=== PATIENT | female | born 1995 | race Caucasian/White ===

== ENCOUNTER → 2019-05-27 16:15 | Outpatient (CLI) | payer SELFPAY ==
[2019-06-02 14:04] LABS: HPV Reflexed? NOT INDICATED
== END ==
PROVIDERS: Referring Provider Obstetrics & Gynecology; Visit Provider Obstetrics & Gynecology
DX: Z12.4 Encounter for screening for malignant neoplasm of cervix (principal)
CPT/HCPCS: 88175; G0145

== ENCOUNTER → 2019-08-04 16:36 | Outpatient (CLI) | payer SELFPAY ==
[2019-08-04 18:34] LABS: Chlamydia Trachomatis by PCR Negative (Negative); Neisserai gonorrhoeae by PCR Negative (Negative); Probe Check PASS; Sample Adequacy Control PASS; Specimen Processing Control PASS
== END ==
PROVIDERS: Visit Provider Obstetrics & Gynecology
DX: Z11.3 Encounter for screening for infections with a predominantly sexual mode of transmission (principal)
CPT/HCPCS: 87491; 87591

== ENCOUNTER → 2019-08-18 15:10 | Outpatient (CLI) | payer SELFPAY ==
[2019-08-18 16:34] LABS: Color, Urine Yellow (Yellow); Glucose, Dipstick Normal (Normal); Ketone-Dipstick Negative (Negative); Leukocyte Esterase-Dipstick Negative /ul (Negative); Nitrite-Dipstick Negative (Negative); Occult Blood-Urine Negative /ul (Negative); Protein-Dipstick Negative (Negative); Urine Bilirubin Dipstick Negative (Negative); Urine Clarity Sl. Cloudy (Clear); Urine Urobilinogen Normal (Normal)
[2019-08-18 16:35] LABS: Absolute Lymphocyte Count 1.67 X10^3/uL (0.83-4.51); Absolute Neutrophil Count 7.6 X10^3/uL (2.0-7.7); Basophil# 0.02 X10^3/uL; Basophil% 0.2 % (0-1); Eosinophil# 0.06 X10^3/uL; Eosinophils% 0.6 % (0-5); Hematocrit 38.3 % (37-47); Hemoglobin 12.7 g/dL (12.0-15.0); Lymphocyte # 1.67 X10^3/ul (4.0); Lymphocyte % 16.6 % (19-41); Mean Corp Hgb Conc 33.2 g/dL (32-36); Mean Corpuscular Volume 84.5 fL (81-99); Mean Platelet Vol. 8.8 fl (6.2-12.0); Monocyte# 0.66 X10^3/uL; Monocyte% 6.5 % (0-10); NRBC Flagged by Analyzer 0 % (0-5); Neutrophil # 7.63 X10^3/uL (2.7-7.7); Neutrophil % 75.7 % (47-70); Platelet Count 340 K/mm3 (150-450); RBC Distribution Width CV 13.3 % (11.6-14.6); RBC Distribution Width SD 41.1 fl (35.1-43.9); Red Blood Count 4.53 M/mm3 (4.2-5.4); White Blood Count 10.1 K/mm3 (4.4-11.0)
[2019-08-18 17:07] LABS: Thyroid Stim Hormone (TSH) 2.02 uIU/mL (0.358-3.74)
[2019-08-19 10:08] LABS: HIV - WCH Non-Reactive (Nonreactive); Hepatitis B Surface Antigen Non-Reactive (Nonreactive); Hepatitis C Antibody Non-Reactive (Nonreactive); Rubella IgG 18.6 IU/mL
[2019-08-20 03:50] LABS: Prenatal RPR NONREACTIVE (NONREACTIVE)
== END ==
PROVIDERS: Visit Provider Obstetrics & Gynecology
DX: Z34.81 Encounter for supervision of other normal pregnancy, first trimester (principal)
CPT/HCPCS: 36415; 81002; 84443; 85025; 86703; 86762; 86803; 87340

== ENCOUNTER → 2020-01-07 09:54 | Outpatient (CLI) | payer SELFPAY ==
[2020-01-07 10:33] LABS: Hematocrit 35.3 % (37-47); Hemoglobin 11.3 g/dL (12.0-15.0); Mean Corpuscular Hgb 29.1 pg (27.0-32.0); Mean Platelet Vol. 8.6 fl (6.2-12.0); Platelet Count 300 K/mm3 (150-450); RBC Distribution Width CV 12.6 % (11.6-14.6); RBC Distribution Width SD 41.6 fl (35.1-43.9); Red Blood Count 3.88 M/mm3 (4.2-5.4); White Blood Count 9.7 K/mm3 (4.4-11.0)
[2020-01-07 10:36] LABS: Glucose Challenge Gest 1H 50g 83 mg/dL (70-140)
== END ==
PROVIDERS: Visit Provider Obstetrics & Gynecology
DX: Z34.82 Encounter for supervision of other normal pregnancy, second trimester (principal)
CPT/HCPCS: 36415; 82950; 85027; 86850

== ENCOUNTER → 2020-03-09 | Outpatient (CLI) | payer SELFPAY | END | disposition home or self-care (01) | LOC: LABSPEC 16:50 | PROVIDERS: PCP Family Medicine; Visit Provider Obstetrics & Gynecology | DX: Z36.85 Encounter for antenatal screening for Streptococcus B (principal) | CPT/HCPCS: 87081 ==

== ENCOUNTER 2020-03-31 22:02 | Inpatient (IN) | payer SELFPAY ==
[2020-03-31 21:53] VITALS: BP 118/81; PULSE 78; PULSE 81; TEMP 36.6; O2SAT 97
[2020-03-31] MEDS: Lactated Ringers 1,000 ML 200 ML IV (22:10)
[2020-03-31 22:15] VITALS: BMI 34.7
[2020-03-31 22:23] LABS: Absolute Lymphocyte Count 1.51 X10^3/uL (0.83-4.51); Absolute Neutrophil Count 7.2 X10^3/uL (2.0-7.7); Basophil# 0.02 X10^3/uL; Basophil% 0.2 % (0-1); Eosinophil# 0.03 X10^3/uL; Eosinophils% 0.3 % (0-5); Hematocrit 31.4 % (37-47); Hemoglobin 10.4 g/dL (12.0-15.0); Lymphocyte # 1.51 X10^3/ul (4.0); Lymphocyte % 15.9 % (19-41); Mean Corp Hgb Conc 33.1 g/dL (32-36); Mean Corpuscular Hgb 27.4 pg (27.0-32.0); Mean Corpuscular Volume 82.6 fL (81-99); Mean Platelet Vol. 9.5 fl (6.2-12.0); Monocyte# 0.74 X10^3/uL; Monocyte% 7.8 % (0-10); NRBC Flagged by Analyzer 0 % (0-5); Neutrophil # 7.16 X10^3/uL (2.7-7.7); Neutrophil % 75.3 % (47-70); Platelet Count 265 K/mm3 (150-450); RBC Distribution Width CV 12.6 % (11.6-14.6); RBC Distribution Width SD 37.9 fl (35.1-43.9); White Blood Count 9.5 K/mm3 (4.4-11.0)
--- NOTE | 2020-03-31 22:43 | PCM.HPOB.BLA ---
History and Physical Date of Admission: 03/31/20 CC: Contractions HPI: 24yo at 40wk/0d with JAYDE: 03/31/20 by 7wk U/s arrives with contractions. Denies JAVIER, CP, SOB, Visual changes, N/V, RUQ pain, LOF. States good movement OB Hx: G1: 40wk , Male 07/08/[birth year] G2: SAB, 05/3019 G3: current PMH: Rh Neg PSH: T&A Allergies: KNDA Soc: Denies smoking, drinking or drug use Family Hx: Denies hx of DVT/PE ROS: Besides the above pertinent positives a full review of systems was performed and found to be negative Physical Exam: Vital Signs Temp Pulse BP Pulse Ox 04/01/20 00:32 141/79 H 03/31/20 23:53 74 100 03/31/20 23:48 77 99 03/31/20 21:53 97.9 F 78 118/81 H 97 Gen: NAD HEENT; NCAT, PERRL Resp: Non labored breathing, no accessory muscles used Abdomen: Soft, nontender, gravid Ext: No peripheral edema, normal peripheral pulses Psych: normal affect normal demeanor, nonpressured speech Mom's Labs & Results 03/31/20 03/31/20 22:10 22:10 WBC 9.5 RBC 3.80 L Hgb 10.4 L Hct 31.4 L MCV 82.6 MCH 27.4 MCHC 33.1 RDW Std Deviation 37.9 RDW Coeff of Sobeida 12.6 Plt Count 265 MPV 9.5 Immature Gran % (Auto) 0.500 Neut % (Auto) 75.3 H Lymph % (Auto) 15.9 L [place] % (Auto) 7.8 Eos % (Auto) 0.3 Baso % (Auto) 0.2 Absolute Neuts (auto) 7.2 Absolute Lymphs (auto) 1.51 Nucleated RBC % 0 Blood Type Pending Antibody Screen Pending Course Did the patient receive Yes care? Labs Blood Type: A RH: NEGATIVE RPR/VDRL/Syphilis Nonreactive Rubella status Immune HbSAg Negative Date Done: 08/18/19 Chlamydia Negative Gonorrhea Negative HIV/AIDS Non-Reactive Group B Strep: Negative A/P: 24yo at 40wk/0d in Labor. -Admit labor and delivery -CEFM -GBS neg -Routine orders -Anesthesia to see -Rh Neg: for rhogam
[2020-03-31 23:48] VITALS: PULSE 77; O2SAT 99
[2020-03-31 23:53] VITALS: PULSE 74; O2SAT 100
[2020-04-01] VITALS (18 sets, daily range): BP systolic 105–141; BP diastolic 61–81; PULSE 61–96; RESP 16–18; TEMP 36.6–37.2; O2SAT 91–98
--- NOTE | 2020-04-01 00:35 | PCM.PN.BLA ---
Progress Note Progress note: Patient seen and examined. Having painful contractions going natural without epidural. -Cervical exam: /-2 AROM clear fluid heart tones: 130s/moderate variability/positive accelerations/negative decelerations [place]: Every 2 minutes Assessment/plan: Going natural expectant management STROKE Vital Signs/Narrative: Vital Signs Temp Pulse BP Pulse Ox 04/01/20 00:32 97.9 F 72 141/79 H 03/31/20 23:53 74 100 03/31/20 23:48 77 99 03/31/20 21:53 97.9 F 78 118/81 H 97
[2020-04-01] MEDS: Oxytocin 30 units/NS 500 ml 30 UNITS/500 ML IV.SOLN 999 UNITS IV (01:41)
--- NOTE | 2020-04-01 02:03 | PCM.OPRPT ---
Vaginal Delivery Maternal Presentation: Active Labor Amniotic Membrane Rupture Type: Artificial Rupture of Membrane time: 0030 Amniotic Fluid Description: Clear Final JAYDE: 03/31/20 Final JAYDE Source: US <20 weeks Gestational age: 40 Weeks and 1 Days Mobile doctor who attended delivery (if requested by OB): Akiko Gaffney Date of Procedure: 04/01/20 Pre-Operative Diagnosis: Labor Post-Operative Diagnosis: Labor Surgery/ Procedure Performed: Spontaneous Vaginal Delivery Type of Anesthesia: Local with 1% lidocaine Description of Procedure: Normal spontaneous vaginal delivery of a viable female infant, vertex position. After AROM cervical dilation progressed to 10 cm +2 station. After first maternal push with contraction bradycardia was noted 50s to 60s, but head was continuing to progress and contractions were q1 minute. Based on progression and with maternal coaching progress continue to be made with each contraction. Head and shoulders delivered with ease, nuchal cord x2 noted. Terminal meconium was noted. Cord was cut and clamped baby was handed off to hosiery mater. Placenta delivered via cord traction and fundal massage. Second-degree laceration was noted and repaired in typical fashion. Hemostatic periurethral lacerations were noted, no repair was needed. EBL 300 cc Apgars 7/9. Steam Station Supervisor was present for delivery
--- NOTE | 2020-04-01 02:13 | DCINST_ITS ---
<Monster Vines - Last Filed: 04/01/20 02:13> Discharge Diet: No Restrictions Discharge Activity: Return to Normal Activity May resume sexual activity in: 2 weeks Weight Bearing Status: Weight bearing as tolerated Call your doctor if your incision/area has: Foul Smelling Discharge Call your doctor if you observe: Fever of 101 or Higher, Shortness of breath, Chest pain Additional Instructions: If you experience any of the following, contact your healthcare provider. * Bleeding that soaks a pad every hour for 2 hours * Fever 100.4 or higher * Unrelieved incision or abdominal pain * Swelling, redness, discharge or bleeding from your incision or episiotomy site * Your incision begins to separate * Problems urinating (including inability to urinate or burning while urinatin g). * Visual changes * Severe headache * Flu-like symptoms * Pain or redness in one of both of your breasts * Pain, warmth, tenderness or swelling in your legs, especially the calf area * Frequent nausea and vomiting * Symptoms of depression or anxiety If you experience any of the following, call 911 or go to the nearest Emergency Room. * Chest pain * Problems breathing * Seizure activity * Partial or complete paralysis of a body part, slurred speech, weakness or drooping of the face, or a sudden inability to walk or hold your balance Allergies/Adverse Reactions: Allergies No Known Allergies Allergy (Verified 03/31/20 22:35) Medications to take at Discharge Dha 03/31/20 Please Follow Up With: Thuy Taylro CNM When: 6 weeks Primary Care Physician: Catalino Noe MD [Primary Care Provider] - Test Results: Test results from this visit will be discussed in further detail at your follow- up appointment, if applicable. <Bobbi Vines - Last Filed: 04/02/20 09:19> Additional Instructions: If you experience any of the following, contact your healthcare provider. * Bleeding that soaks a pad every hour for 2 hours * Fever 100.4 or higher * Unrelieved incision or abdominal pain * Swelling, redness, discharge or bleeding from your incision or episiotomy site * Your incision begins to separate * Problems urinating (including inability to urinate or burning while urinating). * Visual changes * Severe headache * Flu-like symptoms * Pain or redness in one of both of your breasts * Pain, warmth, tenderness or swelling in your legs, especially the calf area * Frequent nausea and vomiting * Symptoms of depression or anxiety If you experience any of the following, call 911 or go to the nearest Emergency Room. * Chest pain * Problems breathing * Seizure activity * Partial or complete paralysis of a body part, slurred speech, weakness or drooping of the face, or a sudden inability to walk or hold your balance Test Results: Test results from this visit will be discussed in further detail at your follow- up appointment, if applicable.
--- NOTE | 2020-04-01 02:13 | PCM.DCVAG ---
<Monster Vines - Last Filed: 04/01/20 02:13> Discharge Diet: No Restrictions Discharge Activity: Return to Normal Activity May resume sexual activity in: 2 weeks Weight Bearing Status: Weight bearing as tolerated Call your doctor if your incision/area has: Foul Smelling Discharge Call your doctor if you observe: Fever of 101 or Higher, Shortness of breath, Chest pain Additional Instructions: If you experience any of the following, contact your healthcare provider. Bleeding that soaks a pad every hour for 2 hours Fever 100.4 or higher Unrelieved incision or abdominal pain Swelling, redness, discharge or bleeding from your incision or episiotomy site Your incision begins to separate Problems urinating (including inability to urinate or burning while urinating). Visual changes Severe headache Flu-like symptoms Pain or redness in one of both of your breasts Pain, warmth, tenderness or swelling in your legs, especially the calf area Frequent nausea and vomiting Symptoms of depression or anxiety If you experience any of the following, call 911 or go to the nearest Emergency Room. Chest pain Problems breathing Seizure activity Partial or complete paralysis of a body part, slurred speech, weakness or drooping of the face, or a sudden inability to walk or hold your balance Allergies/Adverse Reactions: Allergies No Known Allergies Allergy (Verified 03/31/20 22:35) Medications to take at Discharge Dha 03/31/20 Please Follow Up With: Thuy Taylor CNM When: 6 weeks Primary Care Physician: Catalino Noe MD [Primary Care Provider] - Test Results: Test results from this visit will be discussed in further detail at your follow-up appointment, if applicable. <Bobbi Vines - Last Filed: 04/02/20 09:19> Additional Instructions: If you experience any of the following, contact your healthcare provider. Bleeding that soaks a pad every hour for 2 hours Fever 100.4 or higher Unrelieved incision or abdominal pain Swelling, redness, discharge or bleeding from your incision or episiotomy site Your incision begins to separate Problems urinating (including inability to urinate or burning while urinating). Visual changes Severe headache Flu-like symptoms Pain or redness in one of both of your breasts Pain, warmth, tenderness or swelling in your legs, especially the calf area Frequent nausea and vomiting Symptoms of depression or anxiety If you experience any of the following, call 911 or go to the nearest Emergency Room. Chest pain Problems breathing Seizure activity Partial or complete paralysis of a body part, slurred speech, weakness or drooping of the face, or a sudden inability to walk or hold your balance Test Results: Test results from this visit will be discussed in further detail at your follow-up appointment, if applicable.
[2020-04-01] MEDS: Ibuprofen 600 MG Tablet PO ×2 (02:18→20:44)
[2020-04-01] MEDS: Acetaminophen 500 MG Tablet 1000 MG PO (07:27)
--- NOTE | 2020-04-01 08:43 | NURSING ---
Draw by Radha Mckeon
[2020-04-02 00:20] VITALS: BP 112/68; PULSE 69; RESP 18; TEMP 36.6
[2020-04-02 05:30] VITALS: BP 108/66; PULSE 62; RESP 16; TEMP 36.5
--- NOTE | 2020-04-02 07:18 | PCM.PN.OB ---
Subjective: PPD#1 Objective: Feeling well, lochia minimal. - Physical Exam Vitals/I&O's: Vital Signs Temp Pulse Resp BP Pulse Ox 97.7 F L 62 16 108/66 98 04/02/20 05:30 04/02/20 05:30 04/02/20 05:30 04/02/20 05:30 04/01/20 02:31 Oxygen Delivery Method Room Air Weight: 94.801 kg Body Mass Index (BMI) 34.7 Intake and Output for Last 24 Hours 03/31/20 04/01/20 04/02/20 23:59 23:59 23:59 Intake Total 1173.33 / 1173.33 Output Total 450 / 450 Balance 723.33 / 723.33 General: Alert, No apparent distress HEENT: Atraumatic, Normocephalic Lungs: Normal air movement Abdomen: Soft - uterus 2 cm below umbilicus Extremities: No clubbing, No cyanosis Psych/Mental Status: Normal Affect, Appropriate Laboratory Results 04/01/20 08:30: Screen NEGATIVE, Baby's Blood Type A POSITIVE, Baby's JA NEGATIVE Current Medications Acetaminophen (Tylenol) 1,000 mg PO Q8H PRN PRN PRN Reason: Pain Score 1-3/10 Last Admin: 04/01/20 07:27 Dose: 1,000 mg Documented by: Bisacodyl (Dulcolax) 10 mg RECTAL UD PRN PRN Reason: If no BM Dibucaine (Dibucaine) 1 applic TOPICAL TID PRN PRN; Protocol PRN Reason: Discomfort Hydrocortisone (Hytone) 1 applic TOPICAL TID PRN PRN; Protocol PRN Reason: Discomfort Ibuprofen (Motrin) 600 mg PO Q6H PRN PRN PRN Reason: Pain Score 1-3/10 Last Admin: 04/01/20 20:44 Dose: 600 mg Documented by: Ondansetron HCl (Zofran) 4 mg IV Q4H PRN PRN PRN Reason: Nausea Senna/Docusate Sodium (Senokot-S, Ling-Colace) 1 - 2 tablet PO DAILY PRN PRN PRN Reason: Constipation Simethicone (Mylicon) 80 mg PO PCHS PRN PRN Reason: Indigestion/Stomach pain Sodium Chloride () 5 - 15 ml IV UD PRN PRN Reason: SALINE FLUSH Medical Necessity - Tobacco Use Smoking Status: Never smoker Assessment/Plan PPD#1 s/p . Chronic anemia, encourage iron use. Home today. F/u 6w.
[2020-04-02 07:58] VITALS: BP 103/70; PULSE 86; RESP 18; TEMP 36.1; O2SAT 98
[2020-04-02 10:17] VITALS: BP 103/70; PULSE 86; RESP 18; TEMP 36.1; O2SAT 98
== END 2020-04-02 10:50 | disposition home or self-care (01) | DRG 807 ==
LOC: WPOUT 22:06 → WP 22:06
PROVIDERS: Admitting Provider Obstetrics & Gynecology; PCP Family Medicine; Visit Provider Obstetrics & Gynecology
DX: O69.81X0 Labor and delivery complicated by cord around neck, without compression, not applicable or unspecified (principal); Z37.0 Single live birth; O70.1 Second degree perineal laceration during delivery; O76 Abnormality in fetal heart rate and rhythm complicating labor and delivery; Z3A.40 40 weeks gestation of pregnancy; O77.0 Labor and delivery complicated by meconium in amniotic fluid
CPT/HCPCS: 59025; 59050; 85025; 85461; 86850; 86900; 86901; 90384; 99218; J7120; G0378; J2790

== ENCOUNTER 2021-02-06 14:17 | Emergency (ER) | payer OTHER, SELFPAY ==
[2021-01-07 13:20] VITALS: BMI 34.7
[2021-02-06 14:18] VITALS: BP 120/80; PULSE 104; RESP 16; TEMP 36.8; O2SAT 100; BMI 31.3
--- NOTE | 2021-02-06 16:12 | CT_ITS ---
STUDY: CT BRAIN WITH AND WITHOUT CONTRAST REASON FOR EXAM: Female, 25 years old. Severe headache RADIATION DOSAGE (If Supplied By Facility): CTDIvol = ( 26.01 ) mGy, DLP = ( 1103.46 ) mGycm TECHNIQUE: Transaxial CT imaging of the brain was performed pre and post contrast administration. The examination was performed with intravenous administration of 100 CC ISOVUE 370. Individualized dose optimization techniques were used for this CT. COMPARISON: None. FINDINGS: Normal soft tissue structures. Normal calvarium. Normal size ventricles and extra-axial spaces for the patient''s age. Normal white matter tracts of the cerebral hemispheres. Normal basal ganglia and thalami. Normal brainstem. Normal cerebellum. There is no intracranial hemorrhage. There are no findings of an acute ischemic infarction. Normal visualized paranasal sinuses. No suspicious enhancing lesion after contrast administration CT/CTA Head W/WO Contrast IMPRESSION: Normal unenhanced and enhanced CT scan of the brain. Electronically Signed: Diogenes Latif MD at 18:08 EDT , Service support ,
--- NOTE | 2021-02-06 16:14 | EDS_ITS ---
HPI History of Present Illness Chief Complaint: Headache Informant: patient and spouse/S.O. Narrative Narrative: Patient presents with bilateral frontal headache. She describes as a pressure behind her eyes. Radiate a little bit to the bridge of her nose. It did start after sexual intercourse but was not sudden onset or thunderclap. Its not that bad of a headache She has been eating and drinking and doing normal activity. There is no photophobia. She had some transient mild nausea this morning She has no history of migraines or aneurysms. She has no history of polycystic kidney disease. There are some headache histories in her family members but not migraines that she knows of a large amount of. Nothing specifically makes the symptoms better or worse. PFSH PFSH Home Medications multivitamin 1 tab PO DAILY 02/06/21 [History Last Taken Unknown] Allergy/AdvReac Type Severity Reaction Status Date / Time No Known Allergies Allergy Verified 02/06/21 14:20 Social History Smoking Status: Never smoker ROS ROS ED Constitutional Constitutional ED: Denies chills, fever(s), sweats or weight loss Eyes Eyes: Denies blurry vision, change in vision or diplopia ENT ENT ED: Denies rhinorrhea or sore throat Cardiovascular Cardiovascular: Denies chest pain Respiratory/Chest Respiratory/Chest: Denies cough or dyspnea Gastrointestinal Gastrointestinal: Reports nausea and other Details: Patient had some very mild transient nausea this morning. ; Denies abdominal pain, constipation, diarrhea, melena or vomiting Genitourinary Genitourinary ED: Denies dysuria Musculoskeletal Musculoskeletal: Denies neck pain Integumentary Denies rash Neurologic Neurologic: Reports headache(s); Denies paresthesias or weakness Allergic/Immunologic Allergic/Immunologic ED: Denies mouth swelling EXAM Physical Exam Const Vital Signs: 02/06/21 14:18 02/06/21 16:28 Temperature 98.3 F Temperature Source Temporal Pulse Rate 104 H 84 Respiratory Rate 16 16 Blood Pressure 120/80 140/89 H Blood Pressure Mean 93 106 Pulse Ox 100 98 Oxygen Delivery Method Room Air Room Air Positive well nourished and well developed Constitutional Narrative: Patient is sitting quietly and comfortably in a well lit room. She looks nontoxic. General Appearance ED: well developed and NAD HEENT Reports TM's clear and moist mucous membranes Negative for trauma or tenderness Tympanic Membrane ED: Yes TM's clear Eyes PERRL and EOMs intact bilaterally Eyes Narrative: Normal funduscopic exam and no photophobia. General Eye ED: Negative for pale conjunctiva or scleral icterus Neck no lymphadenopathy and supple Neck Narrative: No meningismus. Chest Wall inspection of chest normal Resp normal respiratory effort and clear to auscultation bilaterally Cardio regular rate and regular rhythm GI normal to inspection, nondistended, normoactive bowel sounds, non-tender and non-distended Palpation: soft Back/Spine no CVA tenderness Extremity normal to inspection General Extremety ED: Negative for edema or tenderness General Extremity: Negative for edema Neuro oriented x3 and no sensory deficits noted Sensorium / Orientation: alert; Negative for lethargic or stuporous Motor Exam: strength 5/5 throughout Psych mental status grossly normal Skin no rashes or lesions noted and no wounds MDM MDM MDM Narrative Medical decision making narrative: Patient's blood work are all negative. CT and CT angiogram are also negative. Patient symptoms are resolved. I talked to her about options. We discussed options of lumbar puncture. We discussed risk benefits. At this point was chosen not to proceed. Obviously, is the complaint of having headache that occurred around the time of intercourse is concerning for aneurysm. There is no history of aneurysms or polycystic kidney disease. The headache was not thunder clap onset. It was not severe headache. No neurologic symptoms. Her CT and CTA are negative. We discussed follow-up and rapid return with any return of symptoms. Lab Data Labs: Laboratory Results - last 24 hr 02/06/21 02/06/21 02/06/21 17:00 17:00 17:00 WBC 9.6 RBC 4.67 Hgb 13.0 Hct 39.5 MCV 84.6 MCH 27.8 MCHC 32.9 RDW Std Deviation 38.1 RDW Coeff of Sobeida 12.6 Plt Count 285 MPV 8.6 Immature Gran % (Auto) 0.300 Neut % (Auto) 80.5 H Lymph % (Auto) 13.6 L [place] % (Auto) 5.1 Eos % (Auto) 0.2 Baso % (Auto) 0.3 Absolute Neuts (auto) 7.7 Absolute Lymphs (auto) 1.30 Nucleated RBC % 0 Sodium 137 Potassium 3.8 Chloride 105 Carbon Dioxide 26.0 Anion Gap 6 BUN 10 Creatinine 0.81 Estim Creat Clear Calc 94.71 Est GFR (MDRD) Af Amer 110 Est GFR (MDRD) Non-Af 91 BUN/Creatinine Ratio 12.4 Glucose 90 Calcium 9.6 Serum , Qual NEGATIVE Radiography Diagnostic Testing: Radiology Impression Head CTA 02/06/21 16:12 IMPRESSION: Normal unenhanced and enhanced CT scan of the brain. Electronically Signed: Diogenes Latif MD at 18:08 EDT , Service support , Discharge Plan Triage Chief Complaint: Headache ED Provider: Jose Carlos Lunsford Dx/Rx/DC Orders Clinical Impression: Headache Instructions: ED Headache Unspecified Prescriptions: No Action multivitamin Tablet 1 tab PO DAILY RF: 0 Primary Care Provider: Vianca Grady Referrals: Vianca Grady, [employer] [Primary Care Provider] - 1-2 Days if not improving Disposition Disposition: Home, Self Care
[2021-02-06 16:28] VITALS: BP 140/89; PULSE 84; RESP 16; O2SAT 98
[2021-02-06] MEDS: proCHLORPERazine 10 MG/2 ML Vial IV (17:19)
[2021-02-06] MEDS: DiphenhydrAMINE 50 MG/ML Syringe 25 MG IV (17:19)
[2021-02-06 17:20] LABS: Absolute Neutrophil Count 7.7 X10^3/uL (2.0-7.7); Basophil# 0.03 X10^3/uL; Basophil% 0.3 % (0-1); Eosinophil# 0.02 X10^3/uL; Eosinophils% 0.2 % (0-5); Hematocrit 39.5 % (37-47); Lymphocyte % 13.6 % (19-41); Mean Corp Hgb Conc 32.9 g/dL (32-36); Mean Corpuscular Hgb 27.8 pg (27.0-32.0); Mean Corpuscular Volume 84.6 fL (81-99); Mean Platelet Vol. 8.6 fl (6.2-12.0); Monocyte# 0.49 X10^3/uL; Monocyte% 5.1 % (0-10); NRBC Flagged by Analyzer 0 % (0-5); Neutrophil # 7.71 X10^3/uL (2.7-7.7); Neutrophil % 80.5 % (47-70); Platelet Count 285 K/mm3 (150-450); RBC Distribution Width CV 12.6 % (11.6-14.6); RBC Distribution Width SD 38.1 fl (35.1-43.9); Red Blood Count 4.67 M/mm3 (4.2-5.4); White Blood Count 9.6 K/mm3 (4.4-11.0)
[2021-02-06] MEDS: 0.9% Normal Saline 1,000 ML 999 ML IV (17:20)
[2021-02-06 17:39] LABS: Internal QC Validated? YES +Cl - CLEAR BKGD; Pregnancy, Serum, hCG Quali. NEGATIVE Negative
[2021-02-06 17:44] LABS: Anion Gap 6 (5-15); BUN 10 mg/dL (7-18); BUN/Creat Ratio 12.4 RATIO (10-20); Calcium,Total 9.6 mg/dL (8.5-10.1); Chloride 105 mmol/L (98-107); Creatinine, Serum 0.81 mg/dL (0.55-1.02); EST Glomerular Filtration Rate 91 mL/min (>60); Est Glom Filt Rate - Afr Amer 110 mL/min (>60); Estimated Creatinine Clearance 94.71 ml/min; Glucose 90 mg/dL (74-106); Potassium 3.8 mmol/L (3.5-5.1); Sodium Level 137 mmol/L (136-145)
[2021-02-06 19:20] VITALS: BP 129/80; PULSE 79; RESP 16; O2SAT 98
== END 2021-02-06 19:22 | disposition home or self-care (01) ==
PROVIDERS: Emergency Provider Emergency Medicine; PCP Nurse Practitioner Family
DX: R51.9 Headache, unspecified (principal); R11.0 Nausea
CPT/HCPCS: 70496; 80048; 84703; 85025; 96361; 96374; 96375; 99283; J7030; Q9967; A4216

== ENCOUNTER → 2023-01-09 | Outpatient (CLI) | payer SELFPAY ==
[2023-01-12 06:08] LABS: Chlamydia By Nucleic Acid AMP Negative (Negative); Gonococcus By Nucleic Acid AMP Negative (Negative)
[2023-01-14 17:29] LABS: HPV Reflexed? NOT INDICATED
== END | disposition home or self-care (01) ==
LOC: LABSPEC 14:51
PROVIDERS: PCP Nurse Practitioner Family; Referring Provider Registered Nurse; Visit Provider Registered Nurse
DX: Z34.90 Encounter for supervision of normal pregnancy, unspecified, unspecified trimester (principal)
CPT/HCPCS: 87086; 87088; 87491; 87591; 88175; G0145

== ENCOUNTER → 2023-01-18 | Outpatient (CLI) | payer SELFPAY ==
[2023-01-18 11:16] LABS: Absolute Lymphocyte Count 1.09 X10^3/uL (0.83-4.51); Basophil# 0.01 X10^3/uL; Basophil% 0.1 % (0-1); Eosinophil# 0.06 X10^3/uL; Eosinophils% 0.8 % (0-5); Hematocrit 37.4 % (37-47); Hemoglobin 12.2 g/dL (12.0-15.0); Lymphocyte # 1.09 X10^3/ul (0.83-4.51); Lymphocyte % 14.3 % (19-41); Mean Corp Hgb Conc 32.6 g/dL (32-36); Mean Corpuscular Hgb 27.9 pg (27.0-32.0); Mean Corpuscular Volume 85.6 fL (81-99); Mean Platelet Vol. 8.7 fl (6.2-12.0); Monocyte# 0.43 X10^3/uL; Monocyte% 5.6 % (0-10); NRBC Flagged by Analyzer 0 % (0-5); Neutrophil # 6.01 X10^3/uL (2.7-7.7); Neutrophil % 78.9 % (47-70); Platelet Count 316 K/mm3 (150-450); RBC Distribution Width CV 13.6 % (11.6-14.6); RBC Distribution Width SD 42.5 fl (35.1-43.9); Red Blood Count 4.37 M/mm3 (4.2-5.4); White Blood Count 7.6 K/mm3 (4.4-11.0)
[2023-01-18 11:40] LABS: Glucose Challenge Gest 1H 50g 125 mg/dL (70-140)
[2023-01-18 12:24] LABS: HIV - WCH Non-Reactive (Nonreactive); Hepatitis B Surface Antigen Non-Reactive (Nonreactive); Hepatitis C Antibody Non-Reactive (Nonreactive); Rubella IgG Equiv (Nonreactive); Syphilis Antibodies Non-reactive
== END | disposition home or self-care (01) ==
LOC: LAB 10:27
PROVIDERS: PCP Nurse Practitioner Family; Referring Provider Registered Nurse; Visit Provider Registered Nurse
DX: Z34.90 Encounter for supervision of normal pregnancy, unspecified, unspecified trimester (principal)
CPT/HCPCS: 36415; 82950; 85025; 86703; 86762; 86780; 86803; 86850; 86900; 86901; 87340

== ENCOUNTER → 2023-03-27 | Outpatient (CLI) | payer SELFPAY ==
--- NOTE | 2023-03-27 08:05 | US_ITS ---
STUDY: SECOND AND THIRD TRIMESTER OBSTETRICAL ULTRASOUND REASON FOR EXAM: Female, 27 years old anatomy LMP: November 06, 2022. TECHNIQUE: Transabdominal and Transvaginal TECHNICAL QUALITY: Adequate. PRIOR ULTRASOUND: None. FINDINGS: There is a single intrauterine fetus. The fetus is in a breech presentation. There is demonstrated cardiac activity with a heart rate of 153 bpm. There is a normal amniotic fluid volume. The largest amniotic fluid pocket measures 4.5 cm x 4.6 cm. The amniotic fluid index (GRACIE) is within normal limits. The placenta is posterior in location and is not low lying. There are Grade 0 placental changes. The cervix measures 5.1 cm in length. The bilateral adnexal regions are normal. BIOMETRY: BPD: 4.5 cm: 19 weeks, 5 days HC: 17.4 cm: 19 weeks, 6 days AC: 15.4 cm: 20 weeks, 4 days FL: 3.2 cm: 20 weeks, 0 days CI: 75% FL/BPD: 71% FL/HC: FL/AC: 21% HC/AC: 1.13 age by current US: 20 weeks, 0 days. JAYDE by current US: August 14, 2023. Estimated weight: 342 grams, +/- 51 grams, 51 %. Age by LMP: 20 weeks, 1 days. JAYDE by LMP: August 13, 2023. ANATOMY: Gender: Female Cranium: Normal lateral ventricles. Normal choroid plexus. Normal cerebellum. Normal cisterna magna. Normal face, nose and lips. Chest: Normal 4-chamber heart. Abdomen/Pelvis: Normal diaphragm. Normal stomach. Normal abdominal wall. Normal cord insertion. Normal 3 vessel cord. Normal kidneys. Normal bladder. Spine: Normal cervical spine. Normal thoracic spine. Normal lumbar spine. Normal sacrum. Extremities: Normal bilateral upper extremities. Normal bilateral lower extremities. IMPRESSION: Single live intrauterine gestation with a mean gestational age of 20 weeks. Electronically Signed: Pedro Huffman MD at 15:42 EDT , STUDY: FIRST TRIMESTER OBSTETRICAL ULTRASOUND REASON FOR EXAM: Female, 27 years old. Cervical neck. LMP: November 06, 2022 TECHNIQUE: Transvaginal TECHNICAL QUALITY: Adequate. PRIOR ULTRASOUND: None. FINDINGS: Cervical length measures 5.1 cm. US/OB Anatomy w/ Transvaginal IMPRESSION: Cervical length measures 5.1 cm. Electronically Signed: Pedro Huffman MD at 15:43 EDT ,
== END | disposition home or self-care (01) ==
PROVIDERS: PCP Nurse Practitioner Family; Referring Provider Obstetrics & Gynecology; Visit Provider Obstetrics & Gynecology
DX: O32.1XX0 Maternal care for breech presentation, not applicable or unspecified (principal); Z3A.13 13 weeks gestation of pregnancy
CPT/HCPCS: 76805; 76817

== ENCOUNTER → 2023-05-22 | Outpatient (CLI) | payer SELFPAY ==
[2023-05-22 09:51] LABS: Absolute Lymphocyte Count 1.32 X10^3/uL (0.83-4.51); Basophil# 0.02 X10^3/uL; Basophil% 0.2 % (0-1); Eosinophil# 0.06 X10^3/uL; Eosinophils% 0.7 % (0-5); Hematocrit 34.7 % (37-47); Hemoglobin 11.6 g/dL (12.0-15.0); Lymphocyte # 1.32 X10^3/ul (0.83-4.51); Lymphocyte % 14.7 % (19-41); Mean Corp Hgb Conc 33.4 g/dL (32-36); Mean Corpuscular Hgb 29.7 pg (27.0-32.0); Mean Platelet Vol. 8.6 fl (6.2-12.0); Monocyte# 0.51 X10^3/uL; Monocyte% 5.7 % (0-10); NRBC Flagged by Analyzer 0 % (0-5); Neutrophil # 7.03 X10^3/uL (2.7-7.7); Neutrophil % 77.9 % (47-70); Platelet Count 310 K/mm3 (150-450); RBC Distribution Width CV 13.1 % (11.6-14.6); RBC Distribution Width SD 42.6 fl (35.1-43.9)
[2023-05-22 10:08] LABS: Glucose Challenge Gest 1H 50g 125 mg/dL (70-140)
[2023-05-22 10:43] LABS: HIV - WCH Non-Reactive (Nonreactive); Syphilis Antibodies Non-reactive
== END | disposition home or self-care (01) ==
LOC: LAB 09:34
PROVIDERS: PCP Nurse Practitioner Family; Referring Provider Nurse Practitioner Women's Health; Visit Provider Nurse Practitioner Women's Health
DX: Z34.90 Encounter for supervision of normal pregnancy, unspecified, unspecified trimester (principal)
CPT/HCPCS: 36415; 82950; 85025; 86703; 86780; 86850; 86900; 86901

== ENCOUNTER → 2023-07-16 | Outpatient (CLI) | payer SELFPAY | END | disposition home or self-care (01) | PROVIDERS: PCP Nurse Practitioner Family; Referring Provider Advanced Practice Midwife; Visit Provider Advanced Practice Midwife | DX: Z34.90 Encounter for supervision of normal pregnancy, unspecified, unspecified trimester (principal) | CPT/HCPCS: 87081 ==

== ENCOUNTER → 2023-07-19 | Outpatient (CLI) | payer SELFPAY ==
--- NOTE | 2023-07-19 18:20 | US_ITS ---
STUDY: SECOND AND THIRD TRIMESTER OBSTETRICAL ULTRASOUND REASON FOR EXAM: Female, 28 years old Breech LMP: 11/06/2022 TECHNIQUE: Transabdominal TECHNICAL QUALITY: Adequate. PRIOR ULTRASOUND: 03/27/2023 FINDINGS: There is a single intrauterine fetus. The fetus is in a cephalic presentation. There is demonstrated cardiac activity with a heart rate of 148 bpm. There is a normal amniotic fluid volume. The largest amniotic fluid pocket measures 4.7 cm. The amniotic fluid index (GRACIE) is 13.6 cm. The placenta is posterior in location and is not low lying. There are Grade 1 placental changes. The cervix measures 4.2 cm in length. The bilateral adnexal regions are normal. BIOMETRY: BPD: 8.6]: 34 weeks, 6 days HC: 32.7 cm: 37 weeks, 1 days AC: 33.4 cm: 37 weeks, 2 days FL: 7.1 cm: 36 weeks, 2 days CI: 74.43 FL/BPD: 82.25 FL/HC: 21.65 FL/AC: 21.25 HC/AC: 0.98 age by current US: 36 weeks, 2 days. JAYDE by current US: 08/14/2023. Estimated weight: 3014 grams, +/- 452 grams, 61 %. age by prior US: weeks, days. JAYDE by prior US: . Age by LMP: 36 weeks, 3 days. JAYDE by LMP: 08/13/2023. US/OB Limited With Biometrics IMPRESSION: Living intrauterine of 36 weeks 2 days as described above. Electronically Signed: Nicolas Pro MD at 23:19 EST ,
== END | disposition home or self-care (01) ==
LOC: US 18:00
PROVIDERS: PCP Nurse Practitioner Family; Visit Provider Advanced Practice Midwife
DX: O32.1XX0 Maternal care for breech presentation, not applicable or unspecified (principal); Z3A.00 Weeks of gestation of pregnancy not specified
CPT/HCPCS: 76816

== ENCOUNTER 2023-08-17 07:00 | Inpatient (IN) | payer SELFPAY ==
[2023-08-17] VITALS (33 sets, daily range): BP systolic 104–146; BP diastolic 63–90; PULSE 62–86; RESP 16–18; TEMP 36.2–37; O2SAT 94–100; BMI 36.1
[2023-08-17] MEDS: Lactated Ringers 1,000 ML 50 ML IV (07:35)
[2023-08-17 07:59] LABS: Absolute Lymphocyte Count 1.55 X10^3/uL (0.83-4.51); Absolute Neutrophil Count 6.5 X10^3/uL (2.0-7.7); Basophil# 0.04 X10^3/uL; Basophil% 0.4 % (0-1); Eosinophil# 0.03 X10^3/uL; Eosinophils% 0.3 % (0-5); Hemoglobin 12.2 g/dL (12.0-15.0); Lymphocyte # 1.55 X10^3/ul (0.83-4.51); Lymphocyte % 17.3 % (19-41); Mean Corp Hgb Conc 33.9 g/dL (32-36); Mean Corpuscular Hgb 28.6 pg (27.0-32.0); Mean Corpuscular Volume 84.3 fL (81-99); Mean Platelet Vol. 9.2 fl (6.2-12.0); Monocyte% 7.8 % (0-10); NRBC Flagged by Analyzer 0 % (0-5); Neutrophil # 6.52 X10^3/uL (2.7-7.7); Neutrophil % 73.1 % (47-70); Platelet Count 329 K/mm3 (150-450); RBC Distribution Width CV 12.8 % (11.6-14.6); RBC Distribution Width SD 38.3 fl (35.1-43.9); Red Blood Count 4.27 M/mm3 (4.2-5.4); White Blood Count 8.9 K/mm3 (4.4-11.0)
[2023-08-17] MEDS: Oxytocin 15 Units/NS 250ml 15 UNITS/250 ML IV.SOLN 2 UNITS IV (08:32)
[2023-08-17 09:08] LABS: Syphilis Antibodies Non-reactive
--- NOTE | 2023-08-17 10:32 | HP.PCM.OB_ITS ---
HPI - General General Date of Admission: 08/17/23 Date of Service: 08/17/23 HPI Erik MENDOZA, is a 28 F 40.4 weeks gestation who presents to the unit for IOL for unstable lie of fetus. Cephalic upon admission verified by bedside US by Dr Billings. She was on the unit and offered to scan patient so IOL could be started. Maternal Data Information JAYDE Calculator Estimated Delivery Date Method Current WG Current Estimate 08/13/23 LMP (Certain) 40w 4d Final JAYDE: 08/13/23 Final JAYDE Source: US >20 weeks Gestational age: 40.4 weeks PFSH PFSH Home Medications docosahexaenoic acid 200 mg capsule ( DHA) 200 mg PO DAILY 03/06/23 [History Last Taken 08/16/23 08:00 200 mg] Allergy/AdvReac Type Severity Reaction Status Date / Time No Known Allergies Allergy Verified 08/17/23 07:28 Family History Mother Thyroid disorder Cystic fibrosis carrier Sister Cystic fibrosis carrier Grandfather Cancer maternal unsure what type Grandmother CVA (cerebral vascular accident) Grandfather Heart disease Defibrillator Paternal Cancer paternal type unknown Surgical History S/P tonsillectomy Social History household members: spouse current occupational status: unemployed current occupation: [employer] Smoking Status: Never smoker alcohol intake: never substance use type: does not use seatbelt use: always do you feel safe at home: Yes additional social history: - Maria E- RSE Keesha History 3 Elective abortions Hx Para 2 Spontaneous abortions Hx # Term Pregnancies Ectopic pregnancies Hx # Pregnancies Multiple births # of living children Past Pregnancies Del. Date Name GA/Weeks Outcome Route Bth Weight Infant Gen Labor Lgth Anesthesia Del Locatn Provider FOB 07/08/16 Darin 40 live - full term 8.9 Male epidural claire, [facility] 12/13/17 04/01/20 lucy 40 live - full term Female no ne [facility] dr[facility] natty horowitz Delivery Date: 12/13/17 Last Updated by: Lili Stephens, CNM unknown date, 4 years ago. faint positive test then bleeding. Visit Details Expected Delivery Route/Plan Labor Preferences- CB/BF classes: no labor support person: Maria E labor intervention preferences: [] pain management options preferred: epidural if needed cut cord/dad catch: no : yes PP control planned: discussed discussed possible routes of delivery and associated risks: [] special requests: [] Plans Covid status: Flu vaccine: declines Tdap vaccine: declines Rhogam: PRN, 28 weeks 05/22/23 LARC form signed: yes movement and labor precautions reviewed. Problem list reviewed and updated with the most current plan of care details and appropriate orders placed. Relevant counseling for the gestational age provided. Continue routine care and follow up unless otherwise noted in visit notes/problem list details OB Flowsheet Initial Weight: Not Recorded Date -?-?-?-?-?-?-?-?-?-?-?-?- EGA Weight BP Urine Prot -?-?-?-?-?-?-?-?-?-?-?-?- Glucose FHR FuHt Pres Dilation -?-?-?-?-?-?-?-?-?-?-?-?- Effaced St Visit Note 01/09/23 -?-?-?-?-?-?-?-?-?-?-?-?- 9w 1d 206 lb 2 oz 128/85 -?-?-?-?-?-?-?-?-?-?-?-?- 175 -?-?-?-?-?-?-?-?-?-?-?-?- LC- CRL con with LMP. verified with JV. early glucola for BMI LC- CRL con with LMP. verifi ed with JV. early glucola for BMI. undecided on genetics/carrier screening 02/06/23 -?-?-?-?-?-?-?-?-?-?-?-?- 13w 1d 209 lb 118/76 Negative -?-?-?-?-?-?-?-?-?-?-?-?- Negative 155 -?-?-?-?-?-?-?-?-?-?-?-?- JV- planning franklyn pa scan at [facility] 20 weeks. 03/06/23 -?-?-?-?-?-?-?-?-?-?-?-?- 17w 1d 209 lb 2 oz 119/77 Nega tive -?-?-?-?-?-?-?-?-?-?-?-?- Negative 148 -?-?-?-?-?-?-?-?-?-?-?-?- LC- no vb/[place]. discussed and declines afp. 03/27/23 -?-?-?-?-?-?-?-?-?-?-?-?- 20w 1d 207 lb 4 oz 118/74 Nega tive -?-?-?-?-?-?-?-?-?-?-?-?- Negative 153 -?-?-?-?-?-?-?-?-?-?-?-?- -No VB. Kala gallagher movement. Anatomy US today. Declines tdap 04/24/23 -?-?-?-?-?-?-?-?-?-?-?-?- 24w 1d 208 lb 6 oz 122/84 Nega tive -?-?-?-?-?-?-?-?-?-?-?-?- Negative 151 -?-?-?-?-?-?-?-?-?-?-?-?- MH-No VB, LOF. G ood FM. Denies concerns 05/22/23 -?-?-?-?-?-?-?-?-?-?-?-?- 28w 1d 213 lb 2 oz 116/72 Nega tive -?-?-?-?-?-?-?-?-?-?-?-?- Negative 146 -?-?-?-?-?-?-?-?-?-?-?-?- MH-No VB, LOF. G ood FM. Rhogam, larc. Declines tdap. 06/05/23 -?-?-?-?-?-?-?-?-?-?-?-?- 30w 1d 213 lb 8 oz 118/70 Nega tive -?-?-?-?-?-?-?-?-?-?-?-?- Negative 145 30 -?-?-?-?-?-?-?-?-?-?-?-?- SM- no vb lof go od fm n oregular ctx, in hospital right now for ileus hopefully coming home today. 06/13/23 -?-?-?-?-?-?-?-?-?-?-?-?- 31w 2d 214 lb 2 oz 108/75 Nega tive -?-?-?-?-?-?-?-?-?-?-?-?- Negative 140 31 0 -?-?-?-?-?-?-?-?-?-?-?-?- kw-problem visit today for small amt of spotting last night. had RHogam at 28 weeks. no further spotting. no lof/regular ctx. feeling good fm. 06/19/23 -?-?-?-?-?-?-?-?-?-?-?-?- 32w 1d 216 lb 110/70 Negative -?-?-?-?-?-?-?-?-?-?-?-?- Negative 143 33 -?-?-?-?-?-?-?-?-?-?-?-?- JV- no further s potting. no complaints. Thinks it was from wiping too hard. wants to donate cord blood to her sister. info given. 07/03/23 -?-?-?-?-?-?-?-?-?-?-?-?- 34w 1d 218 lb 6 oz 113/70 Nega tive -?-?-?-?-?-?-?-?-?-?-?-?- Negative 145 34 Breech -?-?-?-?-?-?-?-?-?-?-?-?- JV- no lof, vagi nal bleeding, or dec fm. plan for bedside scan for position next visit. 07/16/23 -?-?-?-?-?-?-?-?-?-?-?-?- 36w 0d 219 lb 8 oz 120/89 Nega tive -?-?-?-?-?-?-?-?-?-?-?-?- Negative 150 36 Breech 1 -?-?-?-?-?-?-?-?-?-?-?-?- KW-no vb/lof/ctx . good fm. bedside US-Breech. Discussed version.US ordered for version. GBS today. 07/23/23 -?-?-?-?-?-?-?-?-?-?-?-?- 37w 0d 219 lb 108/80 Negative -?-?-?-?-?-?-?-?-?-?-?-?- Negative 150 37 Transverse 1 -?-?-?-?-?-?-?-?-?-?-?-?- - SM- no vb lof good fm no regular ctx unstable lie transverse, discussed precautions and reevaluate next week, may consider ECV and IOL at 39 if favorable, or primary csection if still transverse and unfavorable. if cephalic may continue exp management vs IOL based on cervical exam 08/01/23 -?-?-?-?-?-?-?-?-?-?-?-?- 38w 2d 221 lb 106/74 Negative -?-?-?-?-?-?-?-?-?-?-?-?- Negative 140 38 Cephalic 1 -?-?-?-?-?-?-?-?-?-?-?-?- SM- no vb lof good fm no regular ctx now head down, unfavorble cervix recommend expectant management at this time. 08/06/23 -?-?-?-?-?-?-?-?-?-?-?-?- 39w 0d 222 lb 117/77 Negative -?-?-?-?-?-?-?-?-?-?-?-?- Negative 140 38 Cephalic 1 -?-?-?-?-?-?-?-?--?-?-?-?- SM- no vb lof go od fm no regular ctx 08/13/23 -?-?-?-?-?-?-?-?-?-?-?-?- 40w 0d 219 lb 2 oz 123/87 Nega tive -?-?-?-?-?-?-?-?-?-?-?-?- Negative 140 38 Cephalic 1 -?-?-?-?-?-?-?-?-?-?-?-?- KW-no vb/lof/ctx . good fm. IOL set up KW-no vb/lof/ctx. good fm. I OL set up for saturday per her request. Discussed it may be moved KW-no vb/lof/ctx. good fm. I OL set up for saturday per her request. Cephalic on handheld US. Discussed it may be moved NST FHR Rate Baby A Baseline: 130 Variability:: Moderate Accelerations:: 15 x 15 Decelerations:: None NST Reactive:: Yes FHR Category:: Category I Uterine Activity:: irregular ROS Constitutional Constitutional: Denies change in weight, fatigue, fever(s), headache(s), poor appetite or weakness Eyes Eyes: Denies blurry vision, change in vision, floaters, seeing flashes or spots in vision ENT HEENT: Denies dizziness, headache(s), loss taste/smell or sore throat Cardiovascular Cardiovascular: Denies chest pain, dizziness, dyspnea, irregular heart rhythm, lightheadedness, palpitations or rapid heart rate Respiratory/Chest Respiratory/Chest: Denies change in mental status, chest tightness, cough, dyspnea or breast pain Gastrointestinal Gastrointestinal: Denies anorexia, chewing difficulty, constipation, diarrhea or weight changes Genitourinary Genitourinary: Denies difficulty urinating, dysuria, flank pain, genital pain, urinary frequency or urinary urgency Musculoskeletal Musculoskeletal: Denies back pain, difficulty walking, extremity pain, joint pain, muscle cramps or muscle weakness Integumentary Integumentary: Denies lesions or unusual bruising Neurologic Neurologic: Denies abnormal movements, abnormal speech, dizziness, numbness, seizure-like activity, syncope or weakness Psychiatric Psychiatric: Denies behavioral changes, change in appetite, confusion, depression, homicidal ideation, suicidal ideation or suicidal thoughts Endocrine Endocrinology: Denies excessive sweating, polydipsia or polyuria Hematologic/Lymphatic Hematologic/Lymphatic: Denies anemia Allergic/Immunologic Allergic/Immunologic: Denies itchy eyes, lip swelling, throat swelling, tongue swelling or wheezing Vital Signs Vital Signs Vital Signs: 08/17/23 07:26 08/17/23 07:26 08/17/23 07:26 Temperature Temperature Source Temporal Pulse Rate 81 Blood Pressure 132/76 H BP Systolic 132 BP Diastolic 76 Pulse Ox 08/17/23 07:26 08/17/23 07:26 08/17/23 09:10 Temperature 97.2 F L Temperature Source Pulse Rate Blood Pressure 144/87 H BP Systolic 144 BP Diastolic 87 Pulse Ox 98 08/17/23 09:10 08/17/23 09:10 08/17/23 09:11 Temperature Temperature Source Temporal Pulse Rate 77 Blood Pressure BP Systolic BP Diastolic Pulse Ox 97 08/17/23 09:11 08/17/23 09:11 08/17/23 09:11 Temperature 97.6 F L Temperature Source Pulse Rate 71 Blood Pressure BP Systolic BP Diastolic Pulse Ox 98 08/17/23 09:12 08/17/23 09:12 08/17/23 10:23 Temperature Temperature Source Temporal Pulse Rate 72 Blood Pressure 128/88 H BP Systolic 128 BP Diastolic 88 Pulse Ox 08/17/23 10:23 08/17/23 10:23 08/17/23 10:23 Temperature Temperature Source Pulse Rate 62 Blood Pressure 123/89 H BP Systolic 123 BP Diastolic 89 Pulse Ox 98 08/17/23 10:23 Temperature 97.6 F L Temperature Source Pulse Rate Blood Pressure BP Systolic BP Diastolic Pulse Ox Weight Weight: 217 lb 6 oz Body Mass Index (BMI) 36.1 Physical Exam Const alert, oriented x3 and no apparent distress General Appearance: cooperative Orientation / Consciousness: awake HEENT normocephalic Neck full ROM Lymph Lymphatic: no lymphadenopathy noted Chest inspection of chest normal Resp normal respiratory effort and normal air movement Effort and Inspection: able to speak in complete sentences and symmetric chest movement GI soft to palpation and non-tender Inspection: gravid Palpation: soft; Negative for tender external exam normal Manual OB Exam: dilated 6, effaced 60 and station -3 Uterus Palpation: uterus fundus firm Back/Spine normal to inspection Extremity normal to inspection and full ROM Skin no rashes or lesions noted Psych mental status grossly normal Appearance: grossly normal Speech: normal speech Labs Labs Labs: Blood Type A NEGATIVE Antibody Screen NEGATIVE Hct 36.0 % (37-47) L Hgb 12.2 g/dL (12.0-15.0) Obstetrics Ultrasound Syphilis Total Ab Non-reactive Rubella IgG Antibody Equiv (Nonreactive) Hep Bs Antigen Non-Reactive (Nonreactive) Hepatitis C Antibody Non-Reactive (Nonreactive) Chlamydia DNA (RODGER) Negative (Negative) N.gonorrhoeae DNA (RODGER) Negative (Negative) HIV 1&2 Antibody Non-Reactive (Nonreactive) Glucose 1 Hr 50 gm 125 mg/dL (70-140) Rhogam given: Yes Assessment & Plan (1) Unstable lie of fetus: COMMENT: vertex at 38, cervix unfavorable, will repeat exam at 39. (2) Encounter for induction of labor: COMMENT: KW IOL unstable lie PLAN: Patient presents IOL, plan management for with pitocin/AROM. Pain management: plans epidural. GBS negative. Management of any complications: none [facility] and made any clinically relevant updates. Dr Diehl aware and agrees with above assessment and plan. (3) Obesity affecting : COMMENT: nl gct encouraged healthy weight gain (4) Not immune to rubella: COMMENT: offer MMR PP (5) Supervision of high-risk : QUALIFIERS: Trimester: second trimester Qualified Code(s): O09.92 - Supervision of high risk , unspecified, second trimester COMMENT: PRR. . JAYDE 08/13/2022. PC:Lucy Alvarez. hub:maria e (6) : QUALIFIERS: Weeks of gestation: 40 weeks Qualified Code(s): Z3A.40 - 40 weeks gestation of COMMENT: GBS neg, carrier and genetic ntd screening declined. nl anatomy. +COVID 08/08/23 (7) Rh negative state in antepartum period: COMMENT: RHogam at 28 weeks and PRN bleeding, Rhogam given 05/22/23 Charges/Coding Multi Select Codes Urinary/Genital Urinary/Genital CPT Codes: No Charge
[2023-08-17] MEDS: LACTATED RINGERS 500 ML 999 ML IV (10:45)
[2023-08-17] MEDS: fentaNYL-bupivacaine (epidural) 100 ML BAG EPIDURAL (11:30)
--- NOTE | 2023-08-17 13:02 | OP.PCM_ITS ---
Assessment & Plan (1) Vaginal delivery: COMMENT: KW 40.4 IOL girl Katie Jasso (2) Encounter for induction of labor: COMMENT: KW IOL unstable lie (3) Unstable lie of fetus: COMMENT: vertex at 38, cervix unfavorable, will repeat exam at 39. (4) Obesity affecting : COMMENT: nl gct encouraged healthy weight gain (5) Not immune to rubella: COMMENT: offer MMR PP (6) Supervision of high-risk : QUALIFIERS: Trimester: second trimester Qualified Code(s): O09.92 - Supervision of high risk , unspecified, second trimester COMMENT: PRR. . JAYDE 08/13/2022. PC:Connie Alvarez. hub:maria e (7) : QUALIFIERS: Weeks of gestation: 40 weeks Qualified Code(s): Z3A.40 - 40 weeks gestation of COMMENT: GBS neg, carrier and genetic ntd screening declined. nl anatomy. +COVID 08/08/23 (8) Rh negative state in antepartum period: COMMENT: RHogam at 28 weeks and PRN bleeding, Rhogam given 05/22/23 Maternal Data Information JAYDE Calculator Estimated Delivery Date Method Current WG Current Estimate 08/13/23 LMP (Certain) 40w 4d Final JAYDE: 08/13/23 Final JAYDE Source: US >20 weeks Gestational age: 40.4 weeks Vaginal Delivery Maternal Presentation Maternal Presentation: Elective Induction Maternal Presentation: Progressed well to 10cm dilated and made steady progress with effective maternal pushing. Delivered the head in Direct OA presentation. The head was delivered atraumatically and a loose nuchal cord was identified and was easily reduced over the infant's head. The anterior and posterior shoulders delivered in the transverse position at 31 seconds without complication with assistance of suprapubic pressure followed by the rest of the and the infant was placed on the maternal abdomen. Delayed cord clamping was employed for approximately 1 minute. Cord was clamped and cut and infant was passed to nursery nurse for assessment. Gentle traction was applied to the cord and the placenta delivered spontaneously. Immediately following, it was noted to be intact with a 3 vessel cord. The perineum and vagina were inspected and noted to have a first degree laceration which was repaired with 3-0 Vicryl in the usual fashion. EBL was 100cc. Patient and tolerated delivery well. Apgars 8/9. Dr Diehl notified of vaginal delivery and orders reviewed. Physician agrees with current plan of care. Type of Induction: Pitocin Medical Reason for Induction: - (unstable lie) Operative Information Date of Procedure: 08/17/23 Pre-Operative Diagnosis: See AP comments Post-Operative Diagnosis: Same Surgery / Procedure Performed: Spontaneous Vaginal Delivery joist setter #1: Emmy Diza Type of Anesthesia: Epidural Estimated Blood Loss: 100 Time of Delivery: 12:37 Findings Amniotic Membrane Rupture Type: Spontaneous Time of Membrane Rupture: 1153 Amniotic Fluid Description: Clear Placental Delivery Description: Spontaneous Placenta Disposition: [facility] Cord Vessel Description: 3 Vessels Cord Entanglement: Around neck x 1, loose Cord Gases: ABG and VBG Infant A Gender: Female (1 minute): 8 (5 minute): 9 Delayed Cord Clamping: Yes Post Vaginal Delivery Medications Given After Delivery: IV Pitocin Episiotomy Description: None Laceration: 1st degree Complication Complications: None Multi Select Codes Urinary/Genital Urinary/Genital CPT Codes: 72168 Vaginal Delivery [facility]
[2023-08-17] MEDS: Oxytocin 15 Units/NS 250ml 15 UNITS/250 ML IV.SOLN 83 UNITS IV (13:15)
[2023-08-17] MEDS: Acetaminophen 500 MG Tablet 1000 MG PO ×2 (13:51→20:09)
[2023-08-17] MEDS: Ibuprofen 600 MG Tablet PO (16:30)
[2023-08-17] MEDS: Rho(D) Immune Globulin 300 MCG (1500 Unit) Syringe IV (18:03)
[2023-08-18] VITALS (9 sets, daily range): BP systolic 119–141; BP diastolic 72–82; PULSE 64–85; RESP 16–18; TEMP 36.3–36.6; O2SAT 78–99
[2023-08-18] MEDS: Ibuprofen 600 MG Tablet PO ×2 (00:39→08:42)
[2023-08-18] MEDS: Acetaminophen 500 MG Tablet 1000 MG PO (04:09)
--- NOTE | 2023-08-18 08:31 | PCM.PN.OB ---
Subjective Subjective Patient doing well without complaints. Tolerating PO. Ambulating and voiding without difficulty. Feeding well. Denies chest pain, shortness of breath, calf pain/swelling, fevers, chills, lightheadedness. Objective Data Objective Data Vital Signs: Vital Signs Temp Pulse Resp BP Pulse Ox O2 Del Method 97.9 F 64 18 136/82 H 78 Room Air 08/18/23 03:20 08/18/23 08:16 08/18/23 03:20 08/18/23 08:16 08/18/23 08:16 08/18/23 03:20 Oxygen Delivery Method Room Air Weight: 217 lb 6 oz Body Mass Index (BMI) 36.1 Intake & Output: Intake and Output for Last 24 Hours 08/16/23 08/17/23 08/18/23 23:59 23:59 23:59 Intake Total 1211.03 / 1211.03 Output Total 1180 / 1180 Balance 31.03 / 31.03 Lab / Micro Data Attestation: I reviewed the patient's lab results. 08/17/23 07:35 Labs: Laboratory Results - last 24 hr 08/17/23 07:35: Syphilis Total Ab Non-reactive, Blood Type A NEGATIVE, Antibody Screen NEGATIVE 08/17/23 16:45: Screen NEGATIVE, Baby's Blood Type A POSITIVE, Baby's JA NEGATIVE ROS Constitutional Constitutional: Reports systems reviewed and no addt'l complaints, except as documented; Denies anorexia or headache(s) Cardiovascular Cardiovascular: Reports systems reviewed and no addt'l complaints, except as documented; Denies dizziness, dyspnea, nausea or tachypnea Respiratory/Chest Respiratory/Chest: Reports systems reviewed and no addt'l complaints, except as documented; Denies cough, dyspnea, shortness of breath at rest or tachypnea Gastrointestinal Gastrointestinal: Reports systems reviewed and no addt'l complaints, except as documented; Denies abdominal pain, constipation or nausea Genitourinary Genitourinary: Reports systems reviewed and no addt'l complaints, except as documented; Denies burning urination, difficulty urinating, dysuria, urinary frequency or urinary incontinence Musculoskeletal Musculoskeletal: Reports systems reviewed and no addt'l complaints, except as documented Integumentary Integumentary: Reports systems reviewed and no addt'l complaints, except as documented Neurologic Neurologic: Reports systems reviewed and no addt'l complaints, except as documented; Denies abnormal speech, dizziness or headache(s) Psychiatric Psychiatric: Reports systems reviewed and no addt'l complaints, except as documented Endocrine Endocrinology: Reports systems reviewed and no addt'l complaints, except as documented Hematologic/Lymphatic Hematologic/Lymphatic: Reports systems reviewed and no addt'l complaints, except as documented Physical Exam Const alert, oriented x3 and no apparent distress Neck full ROM Resp normal respiratory effort, normal air movement and no retractions Effort and Inspection: able to speak in complete sentences and symmetric chest movement GI soft to palpation Bladder / Kidney Exam: bladder normal to palpation Uterus Palpation: uterus fundus firm Extremity normal to inspection and full ROM Psych mental status grossly normal, thought process normal and cooperative Assessment & Plan (1) Vaginal delivery: COMMENT: KW 40.4 IOL girl Nova Rain PLAN: s/p PPD # 1 1. routine post delivery care 2. breast feeding- support given 3. rh negative 4. rubella immune 5 Discharge home (2) Encounter for induction of labor: COMMENT: KW IOL unstable lie (3) Unstable lie of fetus: COMMENT: vertex at 38, cervix unfavorable, will repeat exam at 39. (4) Obesity affecting : COMMENT: nl gct encouraged healthy weight gain (5) Not immune to rubella: COMMENT: offer MMR PP (6) Supervision of high-risk : QUALIFIERS: Trimester: second trimester Qualified Code(s): O09.92 - Supervision of high risk , unspecified, second trimester COMMENT: PRR. . JAYDE 08/13/2022. PC:Connie Alvarez. hub:maria e (7) : QUALIFIERS: Weeks of gestation: 40 weeks Qualified Code(s): Z3A.40 - 40 weeks gestation of COMMENT: GBS neg, carrier and genetic ntd screening declined. nl anatomy. +COVID 08/08/23 (8) Rh negative state in antepartum period: COMMENT: RHogam at 28 weeks and PRN bleeding, Rhogam given 05/22/23 Charges/Coding Multi Select Codes Urinary/Genital Urinary/Genital CPT Codes: No Charge
[2023-08-18] MEDS: MEASLES,MUMPS,RUBELLA VACC/PF 0.5 ML SC (14:35)
== END 2023-08-18 15:00 | disposition home or self-care (01) | DRG 807 ==
PROVIDERS: Admitting Provider Advanced Practice Midwife; PCP Nurse Practitioner Family; Visit Provider Advanced Practice Midwife
DX: O32.0XX0 Maternal care for unstable lie, not applicable or unspecified (principal); Z37.0 Single live birth; E66.8 Other obesity; O99.214 Obesity complicating childbirth; Z3A.40 40 weeks gestation of pregnancy; Z67.91 Unspecified blood type, Rh negative; O69.81X0 Labor and delivery complicated by cord around neck, without compression, not applicable or unspecified; O70.0 First degree perineal laceration during delivery; O26.23 Pregnancy care for patient with recurrent pregnancy loss, third trimester
CPT/HCPCS: 59025; 59050; 76815; 85025; 85461; 86780; 86850; 86900; 86901; 90384; 99221; J7120; G0378; J2790; J2791